=== PATIENT | male | born 1955 | race Caucasian/White ===

== ENCOUNTER → 2020-06-16 | Outpatient (CLI) | payer MEDICARE, OTHER ==
[2016-02-02 10:29] VITALS: BP 107/70
[~2020-06-16] MED LIST: AMBIEN10 MG PO; FENOFIBRATE145 MG PO; NORCO 325 MG-51 TA1 PO; SPIRIVA INH IH; XANAX0.5 M1 PO; XOPENEX HF0.045 MG/A IH
[2020-06-16 11:39] LABS: BASO # 0.1 (0.02-0.10); EOS % 0.2 % (0.0-4.0); HEMATOCRIT 43.4 % (42.0-52.0); HEMOGLOBIN 14.6 g/dL (13.5-18.0); LYMPH# 2.4 (1.50-4.00); MEAN CELL VOLUME 95 fl (78-100); MEAN CORPUSCULAR HEMOGLOBIN 32 pg (27-31); MEAN CORPUSCULAR HGB CONC 34 g/dL (33-37); MEAN PLATELET VOLUME 9.5 fl (7.4-10.4); MONO # 0.7 (0.20-0.80); NEU # 6.2 (1.40-6.50); PLATELET COUNT 287 K/mm3 (130-400); RED BLOOD COUNT 4.55 M/mm3 (4.20-5.60); RED CELL DISTRIBUTION WIDTH 13.2 % (11.5-14.5); WHITE BLOOD COUNT 9.5 K/mm3 (4.8-10.8)
[2020-06-16 12:00] LABS: ALBUMIN 3.9 g/dL (3.4-4.8)
[2020-06-16 12:01] LABS: CALCIUM 8.8 mg/dL (8.3-10.5)
[2020-06-16 12:02] LABS: TOTAL PROTEIN 6.9 g/dL (6.2-8.1)
[2020-06-16 12:04] LABS: TOTAL BILIRUBIN 0.5 mg/dL (0.2-1.2)
[2020-06-16 12:55] LABS: ERYTHROCYTE SEDIMENTATION RATE 15 mm/hr (0-20)
== END ==
LOC: LAB 11:18
PROVIDERS: Internal Medicine
DX: K90.9 Intestinal malabsorption, unspecified (principal); R73.03 Prediabetes; E78.2 Mixed hyperlipidemia

== ENCOUNTER → 2020-12-14 | Outpatient (CLI) | payer MEDICARE, OTHER ==
[2020-12-14 09:09] LABS: POTASSIUM 4.6 mmol/L (3.5-5.1)
[2020-12-14 09:11] LABS: BASO # 0.06 K/mm3 (0.02-0.10); CALCIUM 9.5 mg/dL (8.3-10.5); EOS # 0.07 K/mm3 (0.04-0.40); EOS % 1.1 % (0.0-4.0); HEMATOCRIT 45.1 % (42.0-52.0); HEMOGLOBIN 14.8 g/dL (13.5-18.0); LYMPH# 1.99 K/mm3 (1.50-4.00); MEAN CELL VOLUME 97 fl (78-100); MEAN CORPUSCULAR HEMOGLOBIN 32 pg (27-31); MEAN CORPUSCULAR HGB CONC 33 g/dL (33-37); MEAN PLATELET VOLUME 9.2 fl (7.4-10.4); MONO # 0.59 K/mm3 (0.20-0.80); PLATELET COUNT 271 K/mm3 (130-400); RED BLOOD COUNT 4.63 M/mm3 (4.20-5.60); RED CELL DISTRIBUTION WIDTH 13.4 % (11.5-14.5); WHITE BLOOD COUNT 6.2 K/mm3 (4.8-10.8)
[2020-12-14 09:12] LABS: TOTAL PROTEIN 7.2 g/dL (6.2-8.1)
[2020-12-14 09:14] LABS: TOTAL BILIRUBIN 0.5 mg/dL (0.2-1.2)
== END ==
LOC: LAB 08:21
PROVIDERS: Internal Medicine
DX: K90.9 Intestinal malabsorption, unspecified (principal); E78.2 Mixed hyperlipidemia; R73.03 Prediabetes

== ENCOUNTER 2021-05-18 07:41 | Outpatient (RCR) | payer MEDICARE, OTHER | END 2021-05-20 19:34 | LOC: OPPGERO 07:41 | DX: F33.3 Major depressive disorder, recurrent, severe with psychotic symptoms (principal); J43.9 Emphysema, unspecified; E78.2 Mixed hyperlipidemia; R73.09 Other abnormal glucose; G47.33 Obstructive sleep apnea (adult) (pediatric); Z79.899 Other long term (current) drug therapy ==

== ENCOUNTER 2021-05-24 11:32 | Outpatient (RCR) | payer MEDICARE, OTHER | END 2021-06-18 16:07 | disposition home or self-care (01) | LOC: OPPGERO 11:32 | DX: F33.9 Major depressive disorder, recurrent, unspecified (principal); J43.9 Emphysema, unspecified; E78.2 Mixed hyperlipidemia; K90.9 Intestinal malabsorption, unspecified; E55.9 Vitamin D deficiency, unspecified; G47.33 Obstructive sleep apnea (adult) (pediatric); Z79.899 Other long term (current) drug therapy ==

== ENCOUNTER → 2021-06-15 | Outpatient (CLI) | payer MEDICARE, OTHER ==
[2021-06-15 23:23] LABS: FOLATE (FOLIC ACID) 16.1 ng/mL (2.0-20.0)
== END ==
LOC: LAB 13:02
PROVIDERS: Psychiatry & Neurology Neurology
DX: E07.9 Disorder of thyroid, unspecified (principal); E53.8 Deficiency of other specified B group vitamins

== ENCOUNTER 2021-06-21 09:52 | Outpatient (RCR) | payer MEDICARE, OTHER | END 2021-07-20 20:53 | disposition home or self-care (01) | LOC: OPPGERO 09:52 | DX: F33.2 Major depressive disorder, recurrent severe without psychotic features (principal) ==

== ENCOUNTER → 2021-06-21 | Outpatient (CLI) | payer MEDICARE, OTHER | LOC: RAD 19:34 | DX: I67.82 Cerebral ischemia (principal) ==